=== PATIENT | female | born 1995 | race Caucasian/White ===

== ENCOUNTER → 2019-03-15 | Outpatient (CLI) | payer BC ==
[~2019-03-15] MED LIST: CEPH-507 PO; NA P230E RC
== END ==
LOC: RAD FS 15:36
PROVIDERS: ATTEND Nurse Practitioner Family
DX: O20.8 Other hemorrhage in early pregnancy (principal); Z3A.00 Weeks of gestation of pregnancy not specified
CPT/HCPCS: 36415; 84702

== ENCOUNTER 2019-03-16 10:36 | Emergency (ER) | payer BC ==
[~2019-03-16] VITALS: Ht 165 cm; Wt 72.7 kg
[2019-03-16] MEDS ORDERED: ACETAMINOPHEN 500 MG TAB (TYLENOL) PO ONE (10:45)
--- NOTE | 2019-03-16 10:48 | ED Abdominal Pain ---
General Stated Complaint: VAGINAL BLEEDING;CRAMPING;CONSTIPATION Source of Information: Patient Exam Limitations: No Limitations History of Present Illness Date Seen by Provider: Mar 16, 2019 Time Seen by Provider: 10:45 Initial Comments To ER per private vehicle with reports of vaginal bleeding, lower abdominal cramping and constipation. She's had constipation intermittently for the past one to 2 weeks which is unusual for her. She took 2 stool softeners last night and has only been having prachi for stool output. This morning she began having some severe lower abdominal cramping all across the lower abdomen mostly on the left lower abdomen. She was having vaginal bleeding yesterday but no cramping or pain. She was seen at [place], she is about 6 weeks Ab0, had an hCG done yesterday that was about 3800. She presents today due to the pain. She has incidentally febrile at 101.4 on arrival. Timing/Duration: 1-2 Days Severity/Quality: Moderate Location: Generalized Abdomen Radiation: No Radiation Associated Symptoms: Denies Symptoms Allergies and Home Medications Allergies Coded Allergies: No Known Drug Allergies (Unverified , 03/16/19) Patient Home Medication List Home Medication List Reviewed: Yes Review of Systems Review of Systems Constitutional: see HPI EENTM: No Symptoms Reported Respiratory: No Symptoms Reported Cardiovascular: No Symptoms Reported Gastrointestinal: See HPI, Abdominal Pain Genitourinary: See HPI Musculoskeletal: no symptoms reported Skin: no symptoms reported Psychiatric/Neurological: No Symptoms Reported Endocrine: No Symptoms Reported Hematologic/Lymphatic: No Symptoms Reported Past Hgzrqjr-Yynvqs-Fvwhef Hx Patient Social History Recent Foreign Travel: No Contact w/Someone Who Travel: No Physical Exam Vital Signs Vital Signs - First Documented 03/16/19 11:09 Temp 38.4 Pulse 114 Resp 15 B/P (MAP) 136/96 (109) Pulse Ox 99 O2 Delivery Room Air Capillary Refill : Height/Weight/BMI Height: '" Weight: lbs. oz. kg; BMI Method: General Appearance: WD/WN, no apparent distress, other (tearful) Neck: non-tender, full range of motion Respiratory: no respiratory distress, no accessory muscle use Cardiovascular: no murmur, tachycardia Gastrointestinal: normal bowel sounds, soft, tenderness (left lower quadrant tenderness to palpation) Extremities: normal range of motion, non-tender Neurologic/Psychiatric: alert, normal mood/affect, oriented x 3 Skin: normal color, warm/dry Progress/Results/Core Measures Results/Orders Lab Results Laboratory Tests Test 03/16/19 10:55 03/16/19 11:00 Range/Units White Blood Count 7.1 4.3-11.0 10^3/uL Red Blood Count 3.56 L 4.35-5.85 10^6/uL Hemoglobin 10.6 L 11.5-16.0 G/DL Hematocrit 32 L 35-52 % Mean Corpuscular Volume 89 80-99 FL Mean Corpuscular Hemoglobin 30 25-34 PG Mean Corpuscular Hemoglobin Concent 33 32-36 G/DL Red Cell Distribution Width 12.9 10.0-14.5 % Platelet Count 186 130-400 10^3/uL Mean Platelet Volume 8.2 7.4-10.4 FL Neutrophils (%) (Auto) 68 42-75 % Lymphocytes (%) (Auto) 22 12-44 % Monocytes (%) (Auto) 10 0-12 % Eosinophils (%) (Auto) 0 0-10 % Basophils (%) (Auto) 0 0-10 % Neutrophils # (Auto) 4.8 1.8-7.8 X 10^3 Lymphocytes # (Auto) 1.6 1.0-4.0 X 10^3 Monocytes # (Auto) 0.7 0.0-1.0 X 10^3 Eosinophils # (Auto) 0.0 0.0-0.3 10^3/uL Basophils # (Auto) 0.0 0.0-0.1 10^3/uL Sodium Level 138 135-145 MMOL/L Potassium Level 3.5 L 3.6-5.0 MMOL/L Chloride Level 108 H 98-107 MMOL/L Carbon Dioxide Level 23 21-32 MMOL/L Anion Gap 7 5-14 MMOL/L Blood Urea Nitrogen 8 7-18 MG/DL Creatinine 0.80 0.60-1.30 MG/DL Estimat Glomerular Filtration Rate > 60 BUN/Creatinine Ratio 10 Glucose Level 98 70-105 MG/DL Calcium Level 8.9 8.5-10.1 MG/DL Corrected Calcium 8.7 8.5-10.1 MG/DL Total Bilirubin 0.2 0.1-1.0 MG/DL Aspartate Amino Transf (AST/SGOT) 22 5-34 U/L Alanine Aminotransferase (ALT/SGPT) 24 0-55 U/L Alkaline Phosphatase 57 40-136 U/L C-Reactive Protein High Sensitivity 1.59 H 0.00-0.50 MG/DL Total Protein 6.8 6.4-8.2 GM/DL Albumin 4.2 3.2-4.5 GM/DL Human Chorionic Gonadotropin, Quant 2765 H <5 MIU/ML Urine Color RYAN H Urine Clarity SLIGHTLY CLOUDY Urine pH 5 5-9 Urine Specific [place] 1.025 H 1.016-1.022 Urine Protein 2+ H NEGATIVE Urine Glucose (UA) NEGATIVE NEGATIVE Urine Ketones 1+ H NEGATIVE Urine Nitrite NEGATIVE NEGATIVE Urine Bilirubin NEGATIVE NEGATIVE Urine Urobilinogen 1 NORMAL MG/DL Urine Leukocyte Esterase 2+ H NEGATIVE Urine RBC (Auto) 5+ H NEGATIVE Urine RBC >100 H /HPF Urine WBC 5-10 H /HPF Urine Squamous Epithelial Cells 10-25 H /HPF Urine Crystals PRESENT H /LPF Urine Amorphous Sediment FEW KASHMIR URATES H /LPF Urine Bacteria FEW H /HPF Urine Casts NONE /LPF Urine Mucus SMALL H /LPF Urine Culture Indicated YES Micro Results Microbiology 03/16/19 Influenza Types A,B Antigen ([facility]) - Final, Complete My Orders Orders - STAS BONILLA [employer] ENGINEER Abo Rh Type (03/16/19 10:43) Hcg,Quantitative (03/16/19 10:43) Cbc With Automated Diff (03/16/19 10:43) Ua Culture If Indicated (03/16/19 10:43) Comprehensive Metabolic Panel (03/16/19 10:43) Ed Iv/Invasive Line Start (03/16/19 10:43) Acetaminophen Tablet (Tylenol Tablet) (03/16/19 10:45) Influenza A And B Antigens (03/16/19 10:43) Hs C Reactive Protein (03/16/19 11:07) Ns Iv 1000 Ml (Sodium Chloride 0.9%) (03/16/19 11:15) Us Ob<14 Wks Sngle W/Transvag (03/16/19 10:43) Urine Culture (03/16/19 11:00) Ceftriaxone For Iv Use (Rocephin For I (03/16/19 11:30) Ct Abd/Pelv W (Appendicitis) (03/16/19 12:12) Iohexol Injection (Omnipaque 350 Mg/Ml 1 (03/16/19 12:30) Received Contrast (Hold Metformin- Contr (03/16/19 12:30) Ns (Ivpb) (Sodium Chloride 0.9% Ivpb Bag (03/16/19 12:30) Medications Given in ED Current Medications Medications Dose Ordered Sig/Pedro Route Start Time Stop Time Status Last Admin Dose Admin Acetaminophen 1,000 mg ONCE ONCE PO 03/16/19 10:45 03/16/19 10:46 DC 03/16/19 11:01 1,000 MG Ceftriaxone Sodium 1000 mg/ Sterile Water 10 ml @ 200 mls/hr ONCE ONCE IV 03/16/19 11:30 03/16/19 11:32 DC 03/16/19 12:07 200 MLS/HR Iohexol 100 ml ONCE ONCE IV 03/16/19 12:30 03/16/19 12:31 DC 03/16/19 12:28 92 ML Sodium Chloride 100 ml ONCE ONCE IV 03/16/19 12:30 03/16/19 12:31 DC 03/16/19 12:28 80 ML Vital Signs/I&O 03/16/19 11:09 Temp 38.4 Pulse 114 Resp 15 B/P (MAP) 136/96 (109) Pulse Ox 99 O2 Delivery Room Air Diagnostic Imaging Diagonstic Imaging: Ultrasound Comments NAME: [facility]UYITA [facility] REC#: [id number] PT STATUS: REG ER : 1995 PHYSICIAN: STAS BONILLA APRN ADMIT DATE: 03/16/19/ER Draft Date of Exam:03/16/19 US OB<14 WKS SNGLE W/TRANSVAG INDICATION: Left lower quadrant pain and vaginal bleeding. FINDINGS: The uterus measures 9.8 x 5.3 x 4.7 cm. The endometrium is thickened measuring up to 2.8 cm. There is generalized heterogeneity to the endometrium, but no internal vascularity is seen. No intrauterine gestational sac is identified. No myometrial mass is detected. The right ovary measures 2.3 x 1.7 x 2.8 cm, and the left ovary measures 2.0 x 1.9 x 1.3 cm. There is a thick-walled structure with central fluid echogenicity adjacent to the left ovary measuring 2.4 x 2.6 x 1.3 cm. The thick-walled portion does show hypervascularity. No definite pole or yolk sac is seen within the area of fluid echogenicity centrally. While this could conceivably represent a left adnexal , no free fluid is present within the pelvis or left adnexa, which is atypical for ectopic . No other abnormalities are seen. IMPRESSION: 1. No evidence of intrauterine . There is left adnexal mass adjacent to the left ovary, as described with peripheral hyperemia. The possibility of ectopic cannot be entirely excluded, although it certainly is atypical for ectopic in the absence of free pelvic fluid. Patient does have markedly heterogeneous and thickened endometrium. Perhaps more likely scenario in light of decreasing beta-hCG is recent spontaneous with endometrium containing blood products with a thick-walled left adnexal corpus luteum. Continued followup with beta-hCG levels and/or followup ultrasound could be performed to confirm stability or resolution. Dictated on workstation # [id number] Dict: 03/16/19 1205 Trans: 03/16/19 1216 [id number] Interpreted by: KIANA COTA MD Electronically signed by: NAME: CHUYITA [facility] REC#: [id number] PT STATUS: REG ER : 1995 PHYSICIAN: STAS BONILLA APRN ADMIT DATE: 03/16/19/ER Draft Date of Exam:03/16/19 US OB<14 WKS SNGLE W/TRANSVAG INDICATION: Left lower quadrant pain and vaginal bleeding. FINDINGS: The uterus measures 9.8 x 5.3 x 4.7 cm. The endometrium is thickened measuring up to 2.8 cm. There is generalized heterogeneity to the endometrium, but no internal vascularity is seen. No intrauterine gestational sac is identified. No myometrial mass is detected. The right ovary measures 2.3 x 1.7 x 2.8 cm, and the left ovary measures 2.0 x 1.9 x 1.3 cm. There is a thick-walled structure with central fluid echogenicity adjacent to the left ovary measuring 2.4 x 2.6 x 1.3 cm. The thick-walled portion does show hypervascularity. No definite pole or yolk sac is seen within the area of fluid echogenicity centrally. While this could conceivably represent a left adnexal , no free fluid is present within the pelvis or left adnexa, which is atypical for ectopic . No other abnormalities are seen. IMPRESSION: 1. No evidence of intrauterine . There is left adnexal mass adjacent to the left ovary, as described with peripheral hyperemia. The possibility of ectopic cannot be entirely excluded, although it certainly is atypical for ectopic in the absence of free pelvic fluid. Patient does have markedly heterogeneous and thickened endometrium. Perhaps more likely scenario in light of decreasing beta-hCG is recent spontaneous with endometrium containing blood products with a thick-walled left adnexal corpus luteum. Continued followup with beta-hCG levels and/or followup ultrasound could be performed to confirm stability or resolution. Dictated on workstation # [id number] Dict: 03/16/19 1205 Trans: 03/16/19 1216 [id number] Interpreted by: KIANA COTA MD Electronically signed by: Departure Communication (Admissions) 1213-I spoke with Dr. JAY. The patient's last menstrual period was January 27. She is pain-free after Tylenol Extra Strength. The cystic structure on the left measures 2.4 x 2.6 x 1.3 cm[address] JAY advises there will be nothing emergent to do, she needs to have follow-up to insure that the hCG continues to drop back to 0 and doesn't just plateau. The fever is likely unrelated. The patient does have constipation, fever and suprapubic abdominal pain, discussed with Dr. JAY and there is no reason not to do a CT scan since we've confirmed a falling hCG level and an empty uterus. 1254-discussed the case with Dr. Lancaster, she like the patient to come in on Tuesday for repeat hCG and she will follow-up with the patient later on in the week. Patient remains pain-free at this time and is afebrile Impression Primary Impression: Complete miscarriage Additional Impressions: Left adnexal cystic structure Urinary tract infection Qualified Codes: N30.01 - Acute cystitis with hematuria Disposition: HOME, SELF-CARE Condition: Stable Departure-Patient Inst. Decision time for Depature: 12:45 Referrals: KRISTAN LANCASTER MD (PCP/Family) Primary Care Physician Patient Instructions: Miscarriage Add. Discharge Instructions: 1. Antibiotic as directed 2. Use the enema as directed at home, return to ER for any worsening symptoms or other concerns. Expect the cramping and bleeding to persist over the next few days but should get progressively better. It is safe to use Tylenol and ibuprofen for pain control. Also use MiraLAX 1 capful 3 times daily for 3 days. Follow-up with Dr. Lancaster on Tuesday to have a repeated hCG level. Scripts Na Phos,M-B/Na Phos,Di-Ba (Fleet Enema Extra) 230 Ml Enema 230 ML RC BID PRN for CONSTIPATION-1ST LINE, #2 EA Prov: STAS BONILLA APRN 03/16/19 Cephalexin (Keflex) 500 Mg Capsule 500 MG PO TID, #14 CAP Prov: STAS BONILLA APRN 03/16/19 Work/School Note: Work Release Form Date Seen in the Emergency Department: Mar 16, 2019 Return to Work: Mar 19, 2019 Copy Copies To 1: KRISTAN LANCASTER MD, PETER J APRN Mar 16, 2019 10:48
[2019-03-16 11:04] LABS: BASOPHILS % (AUTO) 0 % (0-10); EOSINOPHILS % (AUTO) 0 % (0-10); HEMATOCRIT 32 % (35-52); HEMOGLOBIN 10.6 G/DL (11.5-16.0); LYMPHOCYTES # (AUTO) 1.6 X 10^3 (1.0-4.0); LYMPHOCYTES % (AUTO) 22 % (12-44); MEAN CORPUSCULAR HEMOGLOBIN 30 PG (25-34); MEAN CORPUSCULAR HGB CONC 33 G/DL (32-36); MEAN CORPUSCULAR VOLUME 89 FL (80-99); MEAN PLATELET VOLUME 8.2 FL (7.4-10.4); MONOCYTES # (AUTO) 0.7 X 10^3 (0.0-1.0); MONOCYTES % (AUTO) 10 % (0-12); NEUTROPHILS # (AUTO) 4.8 X 10^3 (1.8-7.8); NEUTROPHILS % (AUTO) 68 % (42-75); PLATELET COUNT 186 10^3/uL (130-400); RED CELL DISTRIBUTION WIDTH 12.9 % (10.0-14.5); WHITE BLOOD COUNT 7.1 10^3/uL (4.3-11.0)
[2019-03-16 11:11] LABS: BILIRUBIN,URINE NEGATIVE (NEGATIVE); CLARITY,URINE SLIGHTLY CLOUDY; COLOR,URINE AMBER; GLUCOSE, URINE (UA) NEGATIVE (NEGATIVE); KETONES,URINE 1+ (NEGATIVE); LEUKOCYTE ESTERASE ,URINE 2+ (NEGATIVE); NITRITE,URINE NEGATIVE (NEGATIVE); PH,URINE 5 (5-9); PROTEIN,URINE 2+ (NEGATIVE); UROBILINOGEN,URINE 1 MG/DL (NORMAL)
[2019-03-16] MEDS ORDERED: NS IV 1000 ML 1,000 ML IV SCH (11:15)
[2019-03-16 11:21] LABS: ALANINE AMINOTRANSFERASE 24 U/L (0-55); ALBUMIN 4.2 GM/DL (3.2-4.5); ALKALINE PHOSPHATASE 57 U/L (40-136); BILIRUBIN,TOTAL 0.2 MG/DL (0.1-1.0); BUN/CREATININE RATIO 10; CALCIUM 8.9 MG/DL (8.5-10.1); CARBON DIOXIDE 23 MMOL/L (21-32); CHLORIDE 108 MMOL/L (98-107); GFR ESTIMATED > 60; GLUCOSE 98 MG/DL (70-105); POTASSIUM 3.5 MMOL/L (3.6-5.0); SODIUM 138 MMOL/L (135-145); TOTAL PROTEIN 6.8 GM/DL (6.4-8.2)
[2019-03-16 11:22] LABS: RBC,URINE >100 /HPF
[2019-03-16 11:23] LABS: AMORPHOUS SEDIMENT,UR FEW AMOR URATES /LPF; BACTERIA,URINE FEW /HPF
[2019-03-16] MEDS ORDERED: cefTRIAXone FOR IV USE 1,000 MG in WATER (STERILE) FOR INJECTION 10 ML IV ONE (11:30)
--- NOTE | 2019-03-16 12:17 | Diagnostic Imaging Report ---
INDICATION: Left lower quadrant pain and vaginal bleeding. FINDINGS: The uterus measures 9.8 x 5.3 x 4.7 cm. The endometrium is thickened measuring up to 2.8 cm. There is generalized heterogeneity to the endometrium, but no internal vascularity is seen. No intrauterine gestational sac is identified. No myometrial mass is detected. The right ovary measures 2.3 x 1.7 x 2.8 cm, and the left ovary measures 2.0 x 1.9 x 1.3 cm. There is a thick-walled structure with central fluid echogenicity adjacent to the left ovary measuring 2.4 x 2.6 x 1.3 cm. The thick-walled portion does show hypervascularity. No definite pole or yolk sac is seen within the area of fluid echogenicity centrally. While this could conceivably represent a left adnexal , no free fluid is present within the pelvis or left adnexa, which is atypical for ectopic . No other abnormalities are seen. IMPRESSION: 1. No evidence of intrauterine . There is left adnexal mass adjacent to the left ovary, as described with peripheral hyperemia. The possibility of ectopic cannot be entirely excluded, although it certainly is atypical for ectopic in the absence of free pelvic fluid. Patient does have markedly heterogeneous and thickened endometrium. Perhaps more likely scenario in light of decreasing beta-hCG is recent spontaneous with endometrium containing blood products with a thick-walled left adnexal corpus luteum. Continued followup with beta-hCG levels and/or followup ultrasound could be performed to confirm stability or resolution. Dictated by: Dictated on workstation # [id number]
[2019-03-16] MEDS ORDERED: HOLD METFORMIN - RECEIVED CONTRAST 20 ML VIAL IV SCH (12:30)
[2019-03-16] MEDS ORDERED: IOHEXOL 350 MG/ML 100 ML (OMNIPAQUE 350) VIAL IV ONE (12:30)
[2019-03-16] MEDS ORDERED: NS 100 ML (IVPB) BAG IV ONE (12:30)
--- NOTE | 2019-03-16 12:37 | NUR ---
Pt's tempt 37.3 at this time. Fam notified.
--- NOTE | 2019-03-16 12:45 | Diagnostic Imaging Report ---
PROCEDURE: CT abdomen and pelvis with contrast, rule out appendicitis. TECHNIQUE: Multiple contiguous axial images were obtained through the abdomen and pelvis after the administration of intravenous contrast. INDICATION: Vaginal bleeding and cramping. Patient has elevated white blood cell count. FINDINGS: The lung bases are clear. The liver and gallbladder are unremarkable. The pancreas and spleen are unremarkable. No adrenal mass is seen. Kidneys are unremarkable. The bowel loops demonstrate large amount of stool within the rectum and sigmoid colon, moderate stool in the ascending, transverse and descending colon. The appendix is visualized and unremarkable. There is no CT evidence of acute appendicitis. Small bowel loops are normal caliber. No free fluid or loculated fluid collection is seen. Bladder is unremarkable. Uterus is unremarkable. A small cystic structure in left adnexa is seen, correlating with the ultrasound earlier today. No acute inflammatory changes are seen. IMPRESSION: 1. No CT evidence of acute appendicitis. 2. Moderate stool suggests constipation. No acute feature is seen. Dictated by: Dictated on workstation # [id number]
[2019-03-16] MEDS ORDERED: NA P230E RC (13:04)
[2019-03-16] MEDS ORDERED: CEPH-507 PO (13:04)
[2019-03-16 13:10] VITALS: BP 109/66
== END 2019-03-16 13:10 | disposition home or self-care (01) ==
LOC: EDUNIT# 10:36 → ER 10:37
DX: O03.9 Complete or unspecified spontaneous abortion without complication (principal); N83.8 Other noninflammatory disorders of ovary, fallopian tube and broad ligament; N39.0 Urinary tract infection, site not specified
CPT/HCPCS: 36415; 74177; 76801; 76817; 80053; 81000; 84702; 85025; 86141; 86900; 86901; 87077; 87088; 87804

== ENCOUNTER → 2020-01-15 | Outpatient (CLI) | payer BC ==
--- NOTE | 2020-01-18 14:03 | Physician Query-Final Dx ---
Final Diagnosis Give Final Diagnosis Please give Final Diagnosis RUBI MOMIN Jan 18, 2020 14:03
== END ==
LOC: LAB FS 15:59
PROVIDERS: ATTEND Family Medicine
DX: Z01.419 Encounter for gynecological examination (general) (routine) without abnormal findings (principal)
CPT/HCPCS: 36415; 87491; 87591

== ENCOUNTER → 2020-10-24 | Outpatient (CLI) | payer OTHER | LOC: LABNPT 14:59 | PROVIDERS: ATTEND Family Medicine | DX: Z01.419 Encounter for gynecological examination (general) (routine) without abnormal findings (principal); Z11.3 Encounter for screening for infections with a predominantly sexual mode of transmission | CPT/HCPCS: 86695; 86696; 87210; 87491; 87591 ==

== ENCOUNTER → 2020-10-24 | Outpatient (CLI) | payer OTHER | LOC: LABNPT 15:05 | PROVIDERS: ATTEND Family Medicine | DX: R30.9 Painful micturition, unspecified (principal) | CPT/HCPCS: 87077; 87088; 87186 ==

== ENCOUNTER → 2020-10-24 | Outpatient (CLI) | payer OTHER | LOC: LAB FS 10:30 | PROVIDERS: ATTEND Family Medicine | DX: Z11.3 Encounter for screening for infections with a predominantly sexual mode of transmission (principal) | CPT/HCPCS: 36415; 86703; 86780; 87340 ==

== ENCOUNTER → 2022-04-01 | Outpatient (CLI) | payer SELFPAY ==
[2022-04-01 10:32] LABS: HEMATOCRIT 35 % (35-52); MEAN CORPUSCULAR HEMOGLOBIN 31 pg (25-34); MEAN CORPUSCULAR HGB CONC 35 g/dL (32-36); MEAN CORPUSCULAR VOLUME 88 fL (80-99); MEAN PLATELET VOLUME 8.7 fL (9.0-12.2); PLATELET COUNT 305 10^3/uL (130-400); WHITE BLOOD COUNT 8.4 10^3/uL (4.3-11.0)
== END ==
LOC: LAB FS 09:41
PROVIDERS: ATTEND Family Medicine
DX: Z34.91 Encounter for supervision of normal pregnancy, unspecified, first trimester (principal); R11.2 Nausea with vomiting, unspecified; Z3A.00 Weeks of gestation of pregnancy not specified
CPT/HCPCS: 36415; 85027; 86762; 86780; 86850; 86900; 86901; 87088; 87340; 87389

== ENCOUNTER → 2022-08-03 | Outpatient (CLI) | payer SELFPAY | LOC: LABNPT 07:40 | PROVIDERS: ATTEND Family Medicine | DX: Z01.89 Encounter for other specified special examinations (principal) | CPT/HCPCS: 87210 ==

== ENCOUNTER 2022-11-08 10:45 | Inpatient (IN) | payer BC ==
[~2022-11-08] VITALS: Ht 167.7 cm; Wt 100.1 kg
[2022-11-08] VITALS (60 sets, daily range): BP systolic 91–154; BP diastolic 50–93
[2022-11-08 11:41] LABS: BILIRUBIN,URINE NEGATIVE (NEGATIVE); CLARITY,URINE CLOUDY; COLOR,URINE YELLOW; GLUCOSE, URINE (UA) NEGATIVE (NEGATIVE); KETONES,URINE NEGATIVE (NEGATIVE); LEUKOCYTE ESTERASE ,URINE 3+ (NEGATIVE); NITRITE,URINE NEGATIVE (NEGATIVE); PROTEIN,URINE NEGATIVE (NEGATIVE)
[2022-11-08] MEDS: D5 LR IV SOLUTION 1,000 ML IV SCH ×2 (11:42→16:48)
[2022-11-08 11:44] LABS: BASOPHILS % (AUTO) 0 % (0-10); EOSINOPHILS % (AUTO) 0 % (0-10); HEMATOCRIT 32 % (35-52); HEMOGLOBIN 10.8 g/dL (11.5-16.0); LYMPHOCYTES # (AUTO) 2.7 10^3/uL (1.0-4.0); LYMPHOCYTES % (AUTO) 24 % (12-44); MEAN CORPUSCULAR HEMOGLOBIN 30 pg (25-34); MEAN CORPUSCULAR HGB CONC 34 g/dL (32-36); MEAN CORPUSCULAR VOLUME 87 fL (80-99); MEAN PLATELET VOLUME 9.2 fL (9.0-12.2); MONOCYTES # (AUTO) 0.8 10^3/uL (0.0-1.0); MONOCYTES % (AUTO) 7 % (0-12); NEUTROPHILS # (AUTO) 7.8 10^3/uL (1.8-7.8); NEUTROPHILS % (AUTO) 69 % (42-75); PLATELET COUNT 244 10^3/uL (130-400); WHITE BLOOD COUNT 11.4 10^3/uL (4.3-11.0)
[2022-11-08 11:51] LABS: BACTERIA,URINE LARGE /HPF; RBC,URINE RARE /HPF; WBC,URINE 25-50 /HPF
[2022-11-08] MEDS ORDERED: ACYC400T21 (13:38)
[2022-11-08] MEDS ORDERED: VENL-48 (13:38)
[2022-11-08] MEDS ORDERED: PREN-142 PO (13:39)
[2022-11-08] MEDS ORDERED: fentaNYL 2 mcg/ml BUPIVA 0.125 100 ML ONE (15:18)
[2022-11-08] MEDS ORDERED: fentaNYL INJ 100 MCG/2 ML AMP ONE (15:58)
[2022-11-08] MEDS ORDERED: ONDANSETRON 4 MG/2 ML (SDV) Z0FRAN ONE (16:39)
[2022-11-08] MEDS ORDERED: LACTATED RINGERS 1,000 ML IV SCH (16:45)
[2022-11-08] MEDS ORDERED: fentaNYL 2 mcg/ml BUPIVA 0.125 100 ML EPI SCH (16:45)
[2022-11-08] MEDS ORDERED: diphenhydrAMINE 50 MG/ML INJ (BENADRYL) IV PRN (16:45)
[2022-11-08] MEDS ORDERED: NALOXONE 0.4 MG/ML 1 ML (NARCAN) VIAL IV PRN ×3 (16:45→22:30)
[2022-11-08] MEDS ORDERED: METOCLOPRAMIDE INJ 10 MG/2 ML (REGLAN) IV PRN (16:45)
[2022-11-08] MEDS ORDERED: ONDANSETRON 4 MG/2 ML (SDV) Z0FRAN IV PRN (16:45)
[2022-11-08] MEDS ORDERED: OXYTOCIN PRE-MIX DRIP 500 ML IV ONE (18:55)
[2022-11-08] MEDS ORDERED: OXYTOCIN PRE-MIX DRIP 500 ML IV SCH (19:00)
--- NOTE | 2022-11-08 19:03 | History & Physical-OB ---
OB - Chief Complaint & HPI Date/Time Date of Admission: Date of Admission: November 08, 2022 at 10:45 Date seen by a Provider: November 08, 2022 Time Seen by a Provider: 10:45 Chief Complaint/History OB-Reason for Admission/Chief: Induction of Labor Hx : 3 Hx Para: 1 Expected Date of Delivery: November 13, 2022 Gestational Age in Weeks: 39 Gestational Age in Days: 2 Indication for induction: maternal discomfort Admission Nurse Assessment Rev: Yes History of Labs O pos Antibody neg RI RPR NR HBsAg NR HIV NR GC neg GBS neg Allergies and Home Medications Allergies Coded Allergies: No Known Drug Allergies (Unverified , 03/16/19) Patient Home Medication List Home Medication List Reviewed: Yes Acyclovir (Acyclovir) 400 Mg Tablet, (Reported) Entered as Reported by: ZENOBIA ALTMAN on 11/08/221337 Last Action: Reviewed Vit No.124/Iron/FA ( Vitamin Tablet) 27 Mg Iron-800 Mcg Tablet, 1 EACH PO, (Reported) Entered as Reported by: ZENOBIA ALTMAN on 11/08/221338 Last Action: Reviewed Venlafaxine HCl (Venlafaxine HCl ER) 37.5 Mg Cap.er.24h, (Reported) Entered as Reported by: ZENOBIA ALTMAN on 11/08/221337 Last Action: Reviewed Discontinued Medications Cephalexin (Keflex) 500 Mg Capsule, 500 MG PO TID Discontinued Reason: No Longer Taking Prescribed by: STAS BONILLA on 03/16/19 1304 Last Action: Discontinued Na Phos,M-B/Na Phos,Di-Ba (Fleet Enema Extra) 230 Ml Enema, 230 ML RC BID PRN for CONSTIPATION-1ST LINE Discontinued Reason: No Longer Taking Prescribed by: STAS BONILLA on 03/16/19 1304 Last Action: Discontinued OB - History Hx of Present Care: Yes Ultrasounds: Normal mid trimester US Obstetrical Complications: None Medical Complications: None Patient Past Medical History nc Social History/Family History 2nd Hand Smoke Exposure: No Immunizations Influenza Vaccine Up-to-Date: Yes; Up-to-Date OB - Admission Exam Physical Exam Vitals: Vital Signs 11/08/22 11/08/22 11/08/22 11:16 17:12 17:59 Temp 36.8 Pulse 78 Resp 18 B/P (MAP) 118/72 (87) Pulse Ox 98 O2 Delivery Room Air HEENT: NCAT Heart: Rhythm Normal Lungs: Clear Abdomen: Gravid Extremities: Normal Reflexes: Normal Cervical Dilatation: 4cm Effacement: 75% Station: -1 Membranes: Intact Heart Rate: 130's Accelerations: Accelerations Present Decelerations: No Decelerations Short Term Variability: Present Retirement Variability: Average (6-25) Contractions on Admission: 6-10 Minutes Apart Intensity: Mild Hayward Scoring Tool (Modified) Dilation (cm): 3-4cm (2) Effacement (%): 51-79% (2) Descent/Station: -1,0 (2) Cervix Consistency: Soft (2) Cervix Position: Anterior (2) Add 1 point for: Each previous vaginal delivery (1) Hayward Score: 11 Labs Laboratory Tests Test 11/08/22 11:30 Range/Units White Blood Count 11.4 H 4.3-11.0 10^3/uL Red Blood Count 3.64 L 3.80-5.11 10^6/uL Hemoglobin 10.8 L 11.5-16.0 g/dL Hematocrit 32 L 35-52 % Mean Corpuscular Volume 87 80-99 fL Mean Corpuscular Hemoglobin 30 25-34 pg Mean Corpuscular Hemoglobin Concent 34 32-36 g/dL Red Cell Distribution Width 12.8 10.0-14.5 % Platelet Count 244 130-400 10^3/uL Mean Platelet Volume 9.2 9.0-12.2 fL Immature Granulocyte % (Auto) 0 % Neutrophils (%) (Auto) 69 42-75 % Lymphocytes (%) (Auto) 24 12-44 % Monocytes (%) (Auto) 7 0-12 % Eosinophils (%) (Auto) 0 0-10 % Basophils (%) (Auto) 0 0-10 % Neutrophils # (Auto) 7.8 1.8-7.8 10^3/uL Lymphocytes # (Auto) 2.7 1.0-4.0 10^3/uL Monocytes # (Auto) 0.8 0.0-1.0 10^3/uL Eosinophils # (Auto) 0.0 0.0-0.3 10^3/uL Basophils # (Auto) 0.0 0.0-0.1 10^3/uL Immature Granulocyte # (Auto) 0.1 0.0-0.1 10^3/uL Urine Color YELLOW Urine Clarity CLOUDY Urine pH 6.0 5-9 Urine Specific [place] 1.015 L 1.016-1.022 Urine Protein NEGATIVE NEGATIVE Urine Glucose (UA) NEGATIVE NEGATIVE Urine Ketones NEGATIVE NEGATIVE Urine Nitrite NEGATIVE NEGATIVE Urine Bilirubin NEGATIVE NEGATIVE Urine Urobilinogen 0.2 < = 1.0 MG/DL Urine Leukocyte Esterase 3+ H NEGATIVE Urine RBC (Auto) NEGATIVE NEGATIVE Urine RBC RARE /HPF Urine WBC 25-50 H /HPF Urine Squamous Epithelial Cells 2-5 /HPF Urine Crystals NONE /LPF Urine Bacteria LARGE H /HPF Urine Casts NONE /LPF Urine Mucus NEGATIVE /LPF Urine Culture Indicated YES OB - Assessment/Plan/Diagnosis Assessment Assessment: induction of labor Admission Dx 27 y o @ 39 weeks IOL GBS neg Admission Status: Inpatient Order (span 2 midnights) Reason for Inpatient Admission: IOL at 39 weeks Plan Induction Method: WILMAN ORDONEZ DO November 08, 2022 19:03
[2022-11-08] MEDS ORDERED: LIDOCAINE 1% INJ 10 ML VIAL ONE (22:06)
[2022-11-08] MEDS: OXYTOCIN PRE-MIX DRIP 500 ML IV SCH ×2 (22:16→22:46)
[2022-11-08] MEDS ORDERED: METHYLERGONOVINE 0.2 MG/ML (METHERGINE) AMP ONE (22:22)
[2022-11-08] MEDS ORDERED: DIBUCAINE 1% OINTMENT 28 GM TUBE TOP PRN (22:30)
[2022-11-08] MEDS ORDERED: TETANUS,DIPTH,PERTUSS P/F (BOOSTRIX) 0.5 ML VIAL IM ONE (22:30)
[2022-11-08] MEDS ORDERED: BENZOCAINE/MENTHOL (DERMOPLAST) 56 ML CAN TP PRN (22:30)
[2022-11-08] MEDS ORDERED: WITCH HAZEL(TUCKS) 40 EA JAR TOP PRN (22:30)
[2022-11-08] MEDS: ACETAMINOPHEN 500 MG TAB (TYLENOL) PO SCH (22:30)
[2022-11-08] MEDS ORDERED: MEASLES,MUMPS,RUBELLA 1 EA INJ SQ ONE (22:30)
--- NOTE | 2022-11-08 22:31 | OB Labor & Delivery Record ---
L&D History Date of Service Date of Service: November 08, 2022 History Expected Date of Delivery: November 13, 2022 Gestational Age in Weeks: 39 Hx : 3 Hx Para: 1 Complications Events: Routine care Operative Indications (Cesarea: N/A-Vaginal Delivery Intrapartal Events: None L&D Stage1 Stage One Onset of Labor - Date: November 08, 2022 Monitors and Tracing Monitor Mode: External Heart Rate: 135 Monitor Accelerations: Uniform Monitor Decelerations: None Jail Variability: Average (6-10) Short Term Variability: Present Presentation: Vertex Vital Signs VS - Last 72 Hours, by Label 11/08/22 11/08/22 11/08/22 11/08/22 11:14 11:16 16:01 16:04 Temp 36.8 36.8 Pulse 99 103 85 81 Resp 18 18 18 18 B/P (MAP) 131/76 (94) 132/73 (92) 127/64 (85) Pulse Ox 96 98 100 100 O2 Delivery Room Air Room Air Room Air Room Air 11/08/22 11/08/22 11/08/22 11/08/22 16:06 16:09 16:12 16:15 Pulse 90 90 96 90 Resp 18 18 18 18 B/P (MAP) 132/79 (96) 132/69 (90) 120/68 (85) 127/80 (96) Pulse Ox 100 100 100 98 O2 Delivery Room Air Room Air Room Air Room Air 11/08/22 11/08/22 11/08/22 11/08/22 16:16 16:17 16:19 16:20 Pulse 85 88 83 88 Resp 18 18 18 18 B/P (MAP) 111/68 (82) 116/77 (90) 116/77 (90) 117/76 (90) Pulse Ox 97 99 98 98 O2 Delivery Room Air Room Air Room Air Room Air 11/08/22 11/08/22 11/08/22 11/08/22 16:27 16:30 16:32 16:33 Pulse 114 114 109 107 Resp 18 18 18 18 B/P (MAP) 103/53 (70) 93/51 (65) 109/57 (74) 91/50 (64) Pulse Ox 100 O2 Delivery Room Air Room Air Room Air Room Air 11/08/22 11/08/22 11/08/2222/23 16:36 16:40 16:49 16:52 Pulse 109 144 112 110 Resp 18 18 18 18 B/P (MAP) 104/63 (77) 116/65 (82) 132/67 (88) 140/66 (90) Pulse Ox 96 O2 Delivery Room Air Room Air Room Air Room Air 11/08/22 11/08/22 11/08/22 11/08/22 16:55 16:57 17:03 17:06 Pulse 108 107 86 100 Resp 18 18 18 18 B/P (MAP) 146/73 (97) 141/64 (89) 142/65 (90) 133/70 (91) Pulse Ox 96 98 97 O2 Delivery Room Air Room Air Room Air Room Air 11/08/22 11/08/22 11/08/22 11/08/22 17:09 17:12 17:15 17:19 Pulse 92 80 92 80 Resp 18 18 18 18 B/P (MAP) 129/79 (96) 133/73 (93) 128/72 (90) 133/76 (95) Pulse Ox 98 98 O2 Delivery Room Air Room Air Room Air Room Air 11/08/22 11/08/22 11/08/22 11/08/22 17:24 17:29 17:36 17:39 Pulse 79 80 79 95 Resp 18 18 18 18 B/P (MAP) 103/64 (77) 110/69 (83) 125/70 (88) 115/70 (85) O2 Delivery Room Air Room Air Room Air Room Air 11/08/22 11/08/22 11/08/22 11/08/22 17:44 17:50 17:55 17:59 Pulse 88 73 88 78 Resp 18 18 18 18 B/P (MAP) 108/61 (77) 118/70 (86) 114/72 (86) 118/72 (87) O2 Delivery Room Air Room Air Room Air Room Air 11/08/22 11/08/22 11/08/22 11/08/22 18:05 18:10 18:13 18:21 Pulse 81 78 76 76 Resp 18 18 18 18 B/P (MAP) 117/72 (87) 121/72 (88) 118/72 (87) 113/68 (83) O2 Delivery Room Air Room Air Room Air Room Air 5/2211/08/22 11/08/22 11/08/22 18:24 18:29 18:51 19:15 Pulse 81 78 91 96 Resp 18 18 18 18 B/P (MAP) 116/71 (86) 119/70 (86) 121/71 (88) 114/66 (82) O2 Delivery Room Air Room Air Room Air Room Air 11/08/22 19:30 Pulse 85 Resp 18 B/P (MAP) 118/79 (92) O2 Delivery Room Air Rupture of Membranes Spontaneous Ruture of Membrane: No Amniotic Membrane Rupture Time: 1302 Amniotic Membrane Fluid Desc.: Meconium Stained Vaginal Bleeding Description: Normal Show Induction/Anesthesia Epidural Cath Placement - Time: 1616 Progress/Notes Patient admitted for IOL at 39 weeks. AROM performed followed by epidural placement, then low dose pitocin augmentation. She progressed to complete and + 2 station on 4 mu pitocin. L&D Stage2 Stage Two Stage II Date: November 08, 2022 Monitors and Tracing Monitor Mode: External Heart Rate: 135 Monitor Accelerations: Uniform Monitor Decelerations: Variable Commercial Correspondent Variability: Average (6-10) Position: Right Occiput Anterior Cord Descript/Complications Cord Vessel Description: 3 Vessels Delivery Type Infant Delivery Method: Spontaneous Vaginal Anterior Shoulder: Left Episiotomy/Perineal Laceration Laceraction(s)/Extensions: No Condition of Delivery Notes Live male weight and apgars pending. Condition of Condition of : Living Exam: No Observed Abnormalities Resuscitation Resuscitation: N/A - Spontaneous Resp L&D Stage3 Stage Three Stage III Date: November 08, 2022 Pictocin Pitocin Administration mu/min: 2 Pitocin ml/hr: 2 Pitocin Administration Comment: 30 mu wide open after delivery of placenta Placenta Delivery Placenta Delivery: Spontaneous Delivery Summary Summary Estimated blood loss (mL): 400 Attending at delivery: Wilman Jay DO Condition of Delivery Examined: Cervix Examined, Uterus Explored Post Hemorrhage: No Condition of Mother stable Condition of (s) stable WILMAN JAY DO November 08, 2022 22:31
[2022-11-09] VITALS (7 sets, daily range): BP systolic 111–131; BP diastolic 60–80
[2022-11-09] MEDS: IBUPROFEN 600 MG (MOTRIN) TAB PO SCH ×4 (00:34→19:11)
[2022-11-09] MEDS ORDERED: METHYLERGONOVINE 0.2 MG/ML (METHERGINE) AMP IM ONE (02:30)
[2022-11-09] MEDS ORDERED: CATHETER FLUSH 10 ML SYR IV SCH (06:00)
[2022-11-09] MEDS: ACETAMINOPHEN 500 MG TAB (TYLENOL) PO SCH ×3 (06:09→19:11)
[2022-11-09 06:11] LABS: BASOPHILS % (AUTO) 0 % (0-10); EOSINOPHILS % (AUTO) 0 % (0-10); HEMATOCRIT 33 % (35-52); HEMOGLOBIN 11.7 g/dL (11.5-16.0); LYMPHOCYTES # (AUTO) 3.6 10^3/uL (1.0-4.0); LYMPHOCYTES % (AUTO) 19 % (12-44); MEAN CORPUSCULAR HEMOGLOBIN 30 pg (25-34); MEAN CORPUSCULAR HGB CONC 35 g/dL (32-36); MEAN CORPUSCULAR VOLUME 87 fL (80-99); MONOCYTES # (AUTO) 1.2 10^3/uL (0.0-1.0); MONOCYTES % (AUTO) 6 % (0-12); NEUTROPHILS # (AUTO) 13.7 10^3/uL (1.8-7.8); NEUTROPHILS % (AUTO) 73 % (42-75); PLATELET COUNT 225 10^3/uL (130-400); WHITE BLOOD COUNT 18.7 10^3/uL (4.3-11.0)
[2022-11-09] MEDS: FERROUS SULF 325 MG (IRON) TAB PO SCH (08:23)
[2022-11-09] MEDS: DOCUSATE SODIUM 100 MG (COLACE) CAP PO SCH (08:23)
[2022-11-09] MEDS: PRENATAL VITAMIN 1 EA TAB PO SCH (08:23)
--- NOTE | 2022-11-09 08:46 | Anesthesia-Regional Post-Op ---
Regional Patient Condition Mental Status: Alert, Oriented x3 Circulation: Same as Pre-Op Headache: Absent Sensation: Full Recovery Motor Block: Absent Post Op Complications Complications None Follow Up Care/Instructions Patient Instructions None needed. Anesthesia/Patient Condition Patient is doing well, no complaints, stable vital signs, no apparent adverse anesthesia problems. No complications reported per nursing. D/C home per [facility] [place] Criteria: Yes BHASKAR VANCE CRNA November 09, 2022 08:46
--- NOTE | 2022-11-09 09:00 | Postpartum Progress Note ---
Note Note Day # 1 Subjective: Patient is without complaints. Ambulating, voiding. Tolerating a regular diet without nausea or vomiting. Normal lochia. Pain is well controlled with oral pain medications. Objective: Physical Exam: General - Alert and oriented, no apparent distress Abdomen - Soft, appropriately tender to palpation, non-distended, fundus firm at umbilicus Extremities - no edema, negative Henry's bilaterally Assessment: PPD 1 NVD Acute blood loss anemia Plan: Routine care. Encourage breast feeding. Encourage ambulation. Ferrous sulfate supplementation. Plan for discharge tomorrow Vitals - Labs Vital Signs - I&O Vital Signs Date Time Temp Pulse Resp B/P (MAP) Pulse Ox O2 Delivery O2 Flow Rate FiO2 11/09/22 08:20 37.2 83 18 116/60 (78) 98 Room Air 11/09/22 05:10 36.6 79 18 117/74 (88) 98 11/09/22 00:18 100 18 127/69 (88) 11/09/22 00:03 90 18 131/80 (97) 11/08/22 23:48 93 18 134/85 (101) 11/08/22 23:34 81 18 135/93 (107) 11/08/22 23:30 91 18 138/81 (100) 11/08/22 23:15 99 18 136/75 (95) 11/08/22 23:00 99 18 137/87 (104) 11/08/22 22:45 101 18 139/67 (91) 11/08/22 22:30 112 18 145/65 (91) 11/08/22 22:15 36.9 107 18 154/83 (106) Room Air 11/08/22 22:00 114 18 147/76 (99) Room Air 11/08/22 21:45 18 Room Air 11/08/22 21:30 90 18 131/82 (98) Room Air 11/08/22 21:15 104 18 135/85 (102) Room Air 11/08/22 21:00 85 18 129/77 (94) Room Air 11/08/22 20:45 84 18 129/76 (93) Room Air 11/08/22 20:30 94 18 120/63 (82) Room Air 11/08/22 20:15 96 18 135/76 (95) Room Air 11/08/22 20:00 18 Room Air 11/08/22 19:45 36.1 18 Room Air 11/08/22 19:30 85 18 118/79 (92) Room Air 11/08/22 19:15 96 18 114/66 (82) Room Air 11/08/22 18:51 91 18 121/71 (88) Room Air 11/08/22 18:29 78 18 119/70 (86) Room Air 11/08/22 18:24 81 18 116/71 (86) Room Air 11/08/22 18:21 76 18 113/68 (83) Room Air 11/08/22 18:13 76 18 118/72 (87) Room Air 11/08/22 18:10 78 18 121/72 (88) Room Air 11/08/22 18:05 81 18 117/72 (87) Room Air 11/08/22 17:59 78 18 118/72 (87) Room Air 11/08/22 17:55 88 18 114/72 (86) Room Air 11/08/22 17:50 73 18 118/70 (86) Room Air 11/08/22 17:44 88 18 108/61 (77) Room Air 11/08/22 17:39 95 18 115/70 (85) Room Air 11/08/22 17:36 79 18 125/70 (88) Room Air 11/08/22 17:29 80 18 110/69 (83) Room Air 11/08/22 17:24 79 18 103/64 (77) Room Air 11/08/22 17:19 80 18 133/76 (95) Room Air 11/08/22 17:15 92 18 128/72 (90) Room Air 11/08/22 17:12 80 18 133/73 (93) 98 Room Air 11/08/22 17:09 92 18 129/79 (96) 98 Room Air 11/08/22 17:06 100 18 133/70 (91) Room Air 11/08/22 17:03 86 18 142/65 (90) 97 Room Air 11/08/22 16:57 107 18 141/64 (89) 98 Room Air 11/08/22 16:55 108 18 146/73 (97) 96 Room Air 11/08/22 16:52 110 18 140/66 (90) 96 Room Air 11/08/22 16:49 112 18 132/67 (88) Room Air 11/08/22 16:40 144 18 116/65 (82) Room Air 11/08/22 16:36 109 18 104/63 (77) Room Air 11/08/22 16:33 107 18 91/50 (64) Room Air 11/08/22 16:32 109 18 109/57 (74) Room Air 11/08/22 16:30 114 18 93/51 (65) Room Air 11/08/22 16:27 114 18 103/53 (70) 100 Room Air 11/08/22 16:20 88 18 117/76 (90) 98 Room Air 11/08/22 16:19 83 18 116/77 (90) 98 Room Air 11/08/22 16:17 88 18 116/77 (90) 99 Room Air 11/08/22 16:16 85 18 111/68 (82) 97 Room Air 11/08/22 16:15 90 18 127/80 (96) 98 Room Air 11/08/22 16:12 96 18 120/68 (85) 100 Room Air 11/08/22 16:09 90 18 132/69 (90) 100 Room Air 11/08/22 16:06 90 18 132/79 (96) 100 Room Air 11/08/22 16:04 81 18 127/64 (85) 100 Room Air 11/08/22 16:01 85 18 132/73 (92) 100 Room Air 11/08/22 11:16 36.8 103 18 98 Room Air 11/08/22 11:14 36.8 99 18 131/76 (94) 96 Room Air I & O 11/09/22 07:00 Intake Total 1000 ml Balance 1000 ml Labs Laboratory Tests 11/08/22 11:30: White Blood Count 11.4H, Red Blood Count 3.64L, Hemoglobin 10.8L, Hematocrit 32L , Mean Corpuscular Volume 87, Mean Corpuscular Hemoglobin 30, Mean Corpuscular Hemoglobin Concent 34, Red Cell Distribution Width 12.8, Platelet Count 244, Mean Platelet Volume 9.2, Immature Granulocyte % (Auto) 0, Neutrophils (%) (Auto) 69, Lymphocytes (%) (Auto) 24, Monocytes (%) (Auto) 7, Eosinophils (%) (Auto) 0, Basophils (%) (Auto) 0, Neutrophils # (Auto) 7.8, Lymphocytes # (Auto) 2.7, Monocytes # (Auto) 0.8, Eosinophils # (Auto) 0.0, Basophils # (Auto) 0.0, Immature Granulocyte # (Auto) 0.1, Urine Color YELLOW, Urine Clarity CLOUDY, Urine pH 6.0, Urine Specific [place] 1.015L, Urine Protein NEGATIVE, Urine Glucose (UA) NEGATIVE, Urine Ketones NEGATIVE, Urine Nitrite NEGATIVE, Urine Bilirubin NEGATIVE, Urine Urobilinogen 0.2, Urine Leukocyte Esterase 3+H, Urine RBC (Auto) NEGATIVE, Urine RBC RARE, Urine WBC 25-50H, Urine Squamous Epithelial Cells 2-5, Urine Crystals NONE, Urine Bacteria LARGEH, Urine Casts NONE, Urine Mucus NEGATIVE, Urine Culture Indicated YES, Syphilis Serology Non-Reactive 11/09/22 06:04: White Blood Count 18.7H, Red Blood Count 3.85, Hemoglobin 11.7, Hematocrit 33L, Mean Corpuscular Volume 87, Mean Corpuscular Hemoglobin 30, Mean Corpuscular Hemoglobin Concent 35, Red Cell Distribution Width 12.8, Platelet Count 225, Mean Platelet Volume 9.0, Immature Granulocyte % (Auto) 1, Neutrophils (%) (Auto) 73, Lymphocytes (%) (Auto) 19, Monocytes (%) (Auto) 6, Eosinophils (%) (Auto) 0, Basophils (%) (Auto) 0, Neutrophils # (Auto) 13.7H, Lymphocytes # (Auto) 3.6, Monocytes # (Auto) 1.2H, Eosinophils # (Auto) 0.0, Basophils # (Auto) 0.0, Immature Granulocyte # (Auto) 0.1 WILMAN JAY DO November 09, 2022 09:00
--- NOTE | 2022-11-09 13:38 | Discharge Inst-Women's Service ---
Discharge Inst-Women's Serv Depart Medication/Instructions New, Converted or Re-Newed RX: Transmitted to Pharmacy Final Diagnosis PPD2 NVD Problems Reviewed?: Yes Consults/Follow Up Additional Follow Up: Yes Orders/Referrals Dr. Jay in 6 weeks Activity Activity: Activity as Tolerated Driving Instructions: No Driving for 1 Week NO SMOKING: NO SMOKING Nothing Inside Vagina: No Douching, No [place], No Tampons Diet Discharge Diet: No Restrictions Symptoms to Report to : Bleeding Excessive, Pain Increased, Fever Over 101 Degrees F, Vaginal Bleeding Increase, Questions/Concerns For Any Problems or Questions: Contact Your Physician WILMAN JAY DO November 09, 2022 13:38
[2022-11-09] MEDS ORDERED: DOCU100C37 PO (13:39)
[2022-11-09] MEDS ORDERED: BENZ78AE5 TP (13:39)
[2022-11-09] MEDS ORDERED: IBUP-844 PO (13:39)
[2022-11-09] MEDS ORDERED: ACET-93 PO (13:39)
[2022-11-10] MEDS: DOCUSATE SODIUM 100 MG (COLACE) CAP PO SCH ×2 (00:15→08:30)
[2022-11-10] MEDS: IBUPROFEN 600 MG (MOTRIN) TAB PO SCH ×2 (00:16→06:27)
[2022-11-10] MEDS: ACETAMINOPHEN 500 MG TAB (TYLENOL) PO SCH ×2 (00:16→06:27)
[2022-11-10 06:25] VITALS: BP 108/64
[2022-11-10] MEDS: PRENATAL VITAMIN 1 EA TAB PO SCH (06:27)
[2022-11-10 08:30] VITALS: BP 119/81
[2022-11-10] MEDS: FERROUS SULF 325 MG (IRON) TAB PO SCH (08:30)
--- NOTE | 2022-11-10 08:43 | Postpartum Progress Note ---
Note Note Day # 2 Subjective: Patient is without complaints. Ambulating, voiding. Tolerating a regular diet without nausea or vomiting. Normal lochia. Pain is well controlled with oral pain medications. Objective: Physical Exam: General - Alert and oriented, no apparent distress Abdomen - Soft, appropriately tender to palpation, non-distended, fundus firm at umbilicus Extremities - no edema, negative Henry's bilaterally Assessment: PPD 2 NVD Plan: Routine care. Encourage breast feeding. Encourage ambulation. Ferrous sulfate supplementation. Plan for discharge today Vitals - Labs Vital Signs - I&O Vital Signs Date Time Temp Pulse Resp B/P (MAP) Pulse Ox O2 Delivery O2 Flow Rate FiO2 11/10/22 08:30 36.8 76 18 119/81 (94) 98 Room Air 11/10/22 06:25 36.2 78 18 108/64 (79) 98 Room Air 11/09/22 23:24 36.3 71 20 130/80 (97) 98 Room Air 11/09/22 17:15 36.7 70 18 111/73 (86) 98 Room Air 11/09/22 13:30 36.7 80 18 121/70 (87) 98 Room Air Labs Microbiology 11/08/22 Urine Culture - Final, Complete Streptococcus davisis WILMAN JAY DO November 10, 2022 08:43
[2022-11-10 11:00] VITALS: BP 119/81
== END 2022-11-10 11:00 | disposition home or self-care (01) | DRG 806 ==
LOC: LDRP 10:45
PROVIDERS: ADMIT Obstetrics & Gynecology; ATTEND Obstetrics & Gynecology
PROC: 10E0XZZ Delivery of Products of Conception, External Approach (ICD-10-PCS; principal; 2022-11-08)
PROC: 10907ZC Drainage of Amniotic Fluid, Therapeutic from Products of Conception, Via Natural or Artificial Opening (ICD-10-PCS; 2022-11-08)
DX: O99.344 Other mental disorders complicating childbirth (principal); D62 Acute posthemorrhagic anemia; Z37.0 Single live birth; Z3A.39 39 weeks gestation of pregnancy; O77.0 Labor and delivery complicated by meconium in amniotic fluid; F41.9 Anxiety disorder, unspecified; F32.A Depression, unspecified; O90.81 Anemia of the puerperium
CPT/HCPCS: 36415; 81000; 85025; 86780; 86850; 86900; 86901; 87088